=== PATIENT | male | born 1975 | race Hispanic/Latino ===

== ENCOUNTER → 2018-06-19 | Outpatient (CLI) | payer OTHER ==
--- NOTE | 2018-06-19 23:10 | Diagnostic Imaging Report ---
SACRUM X-RAY HISTORY: Pain. COMPARISON: None available. FINDINGS: Bones: No acute displaced fracture. Osseous alignment is within normal limits. Joints: The joint spaces are well-maintained. Soft tissues: The soft tissues appear unremarkable. IMPRESSION: No acute radiographic abnormality. Signed by: DR. Chuckie David MD on 06/19/2018 11:06 PM
--- NOTE | 2018-06-20 07:20 | Diagnostic Imaging Report ---
Exam: Lumbar spine complete History: Spondylosis Comparison: None. Findings: There are 5 nonrib-bearing lumbar vertebral bodies. No acute, displaced fracture or subluxation. No pars interarticularis defects are identified on the oblique radiographs. Intervertebral disc spaces and facet joints are well-maintained. Sacroiliac joints are intact. Soft tissues are unremarkable. Impression: No acute osseous abnormality. Signed by: Dr. Shaq Thorne M.D. on 06/20/2018 7:17 AM
== END ==
LOC: RAD 16:15
PROVIDERS: ATTEND Internal Medicine
DX: I20.9 Angina pectoris, unspecified (principal); I63.40 Cerebral infarction due to embolism of unspecified cerebral artery; M43.06 Spondylolysis, lumbar region
CPT/HCPCS: 72110; 72220